=== PATIENT | female | born 1965 | race Caucasian/White ===

== ENCOUNTER 2017-07-26 09:59 | Emergency (ER) | payer OTHER, BC ==
[~2017-07-26] VITALS: Ht 165.1 cm; Wt 72.6 kg
[~2017-07-26 09:59] MED LIST: SERT50TA14
--- NOTE | 2017-07-26 10:18 | NUR ---
PT SEEN AND EVALUATED BY DR CORNELIUS. PRESCRIPTION GIVEN TO PATIENT. DISCHARGE INSTRUCTIONS RENDERED . DISCHARHED IN STABLE CONDITION.
[2017-07-26 10:21] VITALS: BP 140/82
== END 2017-07-26 10:22 | disposition home or self-care (01) ==
LOC: ER 09:59
DX: J06.9 Acute upper respiratory infection, unspecified (principal)
CPT/HCPCS: A4663

== ENCOUNTER 2017-07-28 09:09 | Emergency (ER) | payer OTHER ==
[~2017-07-28] VITALS: Ht 165.1 cm; Wt 72.6 kg
[2017-07-28] MEDS ORDERED: ALBUTEROL SULFATE 2.5 MG/3 ML NEBU ONE ×3 (09:30→11:53)
[2017-07-28] MEDS ORDERED: IPRATROPIUM BROMIDE 0.5 MG/2.5 ML NEBU ONE ×3 (09:30→11:54)
[2017-07-28] MEDS ORDERED: ALBUTEROL SULFATE 2.5 MG/3 ML NEBU NEB ONE ×2 (10:00→11:15)
[2017-07-28] MEDS ORDERED: IPRATROPIUM BROMIDE 0.5 MG/2.5 ML NEBU NEB ONE ×2 (10:00→11:15)
[2017-07-28] MEDS ORDERED: methylPREDNISolone SOD SUCC 125 MG/2 ML VIAL IV ONE (10:00)
[2017-07-28] MEDS ORDERED: IV NORMAL SALINE 1000 ML BAG IV ONE (10:00)
--- NOTE | 2017-07-28 10:22 | NUR ---
iv placed,solumedrol iv administered, cxr/ekg done, presently 2200ml 0.9 bolus infusing, also pt currently receiving resp tx. pt's son at the bedside.
[2017-07-28 10:26] LABS: BASOPHILS % (AUTO) 0.5 % (0.0-2.0); EOSINOPHILS # (AUTO) 0.2 K/uL (0.0-0.7); EOSINOPHILS % (AUTO) 1.8 % (0.0-7.0); HEMATOCRIT 39.5 % (31.2-41.9); HEMOGLOBIN 13.7 g/dL (10.9-14.3); LYMPHOCYTES # (AUTO) 1.3 K/uL (20.0-40.0); LYMPHOCYTES % (AUTO) 14.6 % (20.5-51.5); MEAN CORPUSCULAR HGB CONC 35 g/dL (32.3-35.6); MEAN CORPUSCULAR VOLUME 83.6 fL (75.5-95.3); MONOCYTES # (AUTO) 0.7 K/uL (2.0-10.0); MONOCYTES % (AUTO) 8.2 % (0.0-11.0); NEUTROPHILS # (AUTO) 6.5 K/uL (1.8-8.9); NEUTROPHILS % (AUTO) 74.9 % (38.5-71.5); PLATELET COUNT (AUTO) 241 K/uL (179-408); RED BLOOD CELL COUNT(AUTO) 4.72 MIL/uL (3.63-4.92); WHITE BLOOD COUNT (AUTO) 8.7 K/uL (3.8-11.8)
[2017-07-28 10:28] LABS: CREATININE 0.7 mg/dL (0.6-1.3); POTASSIUM 3.8 mmol/L (3.5-5.1)
[2017-07-28] MEDS ORDERED: methylPREDNISolone SOD SUCC 125 MG/2 ML VIAL ONE (10:33)
[2017-07-28 10:40] LABS: BILIRUBIN,DIRECT 0.1 mg/dL (0.0-0.2); BILIRUBIN,TOTAL 0.5 mg/dL (0.2-1.0); TOTAL PROTEIN, SERUM 7.8 g/dL (6.4-8.2)
--- NOTE | 2017-07-28 13:13 | NUR ---
mse completed, iv d/c'd with cath intact. pt was then d/c'd home, aci/rx x2 and copies of tests and ekg given. pt staed she felt alot better and pt ambulated w./o diff/took all belongings.
[2017-07-28 13:16] VITALS: BP 129/67
== END 2017-07-28 13:17 | disposition home or self-care (01) ==
LOC: ER 09:09
DX: J45.909 Unspecified asthma, uncomplicated (principal)
CPT/HCPCS: 36415; 71010; 80048; 80076; 83605; 83880; 84484; 85025; 85730; 87040 ×2; 93005; 94644; 94645; 96361; 96374; 99285; A4663; J2930; J3590 ×3; J7030; J7050; 70030-TC

== ENCOUNTER 2017-07-30 10:10 | Inpatient (IN) | payer MEDICAID, OTHER ==
[~2017-07-30] VITALS: Ht 165.1 cm; Wt 72.6 kg
[2017-07-30] MEDS ORDERED: PRED50TA PO (10:38)
[2017-07-30] MEDS ORDERED: ALBU6.7H INH (10:38)
[2017-07-30] MEDS ORDERED: IV NORMAL SALINE 1000 ML BAG IV ONE (11:00)
[2017-07-30 11:10] LABS: BASOPHILS # (AUTO) 0.1 K/uL (0.0-8.0); BASOPHILS % (AUTO) 0.5 % (0.0-2.0); EOSINOPHILS # (AUTO) 0.1 K/uL (0.0-0.7); EOSINOPHILS % (AUTO) 0.8 % (0.0-7.0); HEMATOCRIT 41.9 % (37-47); HEMOGLOBIN 13.7 G/DL (12.0-16.0); LYMPHOCYTES # (AUTO) 1.6 K/UL (0.8-4.8); LYMPHOCYTES % (AUTO) 14.8 % (20.5-51.5); MEAN CORPUSCULAR HGB CONC 33 g/dL (32.0-37.0); MEAN CORPUSCULAR VOLUME 82.5 FL (81.0-99.0); MONOCYTES # (AUTO) 0.8 K/UL (0.1-1.30); MONOCYTES % (AUTO) 7.8 % (0.0-11.0); NEUTROPHILS # (AUTO) 8.2 K/UL (1.8-8.9); NEUTROPHILS % (AUTO) 76.1 % (38.5-71.5); PLATELET COUNT (AUTO) 296 K/UL (150-450); RED BLOOD CELL COUNT(AUTO) 5.07 MIL/UL (4.2-5.4); WHITE BLOOD COUNT (AUTO) 10.8 K/UL (4.0-11.2)
--- NOTE | 2017-07-30 11:20 | NUR ---
Pt resting in [facility] with NAD noted at this time. Per Dr. Melendez pt to be admitted, [facility] called.
[2017-07-30 11:23] LABS: CREATININE 0.7 mg/dL (0.6-1.3); POTASSIUM 3.7 mmol/L (3.5-5.1)
[2017-07-30] MEDS ORDERED: CEFTRIAXONE 1 G in IV DEXTROSE 5% 50 ML IV ONE (11:30)
[2017-07-30] MEDS ORDERED: AZITHROMYCIN IV 500 MG in IV DEXTROSE 5% 250 ML IV ONE (11:30)
[2017-07-30 11:35] LABS: BILIRUBIN,DIRECT 0.1 mg/dL (0.0-0.2); BILIRUBIN,TOTAL 0.4 mg/dL (0.2-1.0); TOTAL PROTEIN, SERUM 7.7 g/dL (6.4-8.2)
[2017-07-30] MEDS ORDERED: CEFTRIAXONE 1 G VIAL ONE (11:47)
[2017-07-30] MEDS ORDERED: AZITHROMYCIN 500 MG VIAL IV ONE (11:47)
--- NOTE | 2017-07-30 12:08 | NUR ---
Pt trans to tele, NAD noted.
[2017-07-30 12:40] VITALS: BP 123/68
--- NOTE | 2017-07-30 12:57 | NUR ---
Recieved pateint from Jayna RN. Pt is alert and oriented. Denies any pain or distress. No labored breathing and ambulates well to restroom with no assistance. room safety check is completed. Patient is oriented to room, call light.
[2017-07-30] MEDS ORDERED: IV D5 1/2 NS 1000 ML 1,000 ML IV PRN (12:59)
[2017-07-30] MEDS ORDERED: MAGNESIUM HYDROXIDE 30 ML LIQUID UDC PO PRN (13:00)
[2017-07-30] MEDS ORDERED: ACETAMINOPHEN 325 MG TABLET PO PRN (13:00)
[2017-07-30] MEDS ORDERED: HYDROCODONE/APAP 5-325MG TABLET PO PRN (13:00)
[2017-07-30] MEDS ORDERED: ZOLPIDEM 5 MG TABLET PO PRN (13:00)
[2017-07-30] MEDS ORDERED: ONDANSETRON 4 MG/2 ML VIAL IV PRN (13:00)
[2017-07-30] MEDS ORDERED: Z GUARD REMEDY PASTE 57 GM TUBE TOP PRN (13:00)
[2017-07-30] MEDS: methylPREDNISolone SOD SUCC 40 MG/ML VIAL IV SCH ×2 (14:58→21:55)
[2017-07-30 15:54] VITALS: BP 109/56
[2017-07-30] MEDS: FUROSEMIDE 20 MG TABLET PO SCH (17:18)
[2017-07-30 20:41] VITALS: BP 122/63
--- NOTE | 2017-07-30 23:59 | NUR ---
PT RECEIVED LAYING IN BED WITH FAMILY AT BEDSIDE. OBSERVED COOPERATIVE AND COMPLIANT, DENIES ANY PHYSICAL PAIN AT THIS TIME. ON ROOM AIR, NO ACUTE DISTRESS NOTED. PT ON TELEMETRY, SINUS RHYTHM. BED IN LOW AND LOCKED POSITION. CALL LIGHT WITHIN REACH.
[2017-07-31 00:11] VITALS: BP 114/66
[2017-07-31] MEDS ORDERED: POLYVINYL ALCOHOL OPHT DROPS 15 ML BOTTLE ONE (00:17)
[2017-07-31] MEDS: TOBRAMYCIN/DEXAMETH OPHT DROP 2.5 ML BOTTLE EACHEYE SCH ×6 (04:00→20:34)
[2017-07-31 05:04] VITALS: BP 113/63
[2017-07-31] MEDS: methylPREDNISolone SOD SUCC 40 MG/ML VIAL IV SCH ×2 (06:28→18:26)
[2017-07-31 06:42] LABS: BASOPHILS % (AUTO) 0.2 % (0.0-2.0); HEMATOCRIT 42.4 % (31.2-41.9); HEMOGLOBIN 14.1 g/dL (10.9-14.3); LYMPHOCYTES # (AUTO) 1.2 K/uL (20.0-40.0); LYMPHOCYTES % (AUTO) 9.7 % (20.5-51.5); MEAN CORPUSCULAR HEMOGLOBIN 27.9 uug (24.7-32.8); MEAN CORPUSCULAR HGB CONC 33 g/dL (32.3-35.6); MEAN CORPUSCULAR VOLUME 83.8 fL (75.5-95.3); MONOCYTES # (AUTO) 0.4 K/uL (2.0-10.0); NEUTROPHILS # (AUTO) 10.6 K/uL (1.8-8.9); NEUTROPHILS % (AUTO) 87.1 % (38.5-71.5); PLATELET COUNT (AUTO) 278 K/uL (179-408); RED BLOOD CELL COUNT(AUTO) 5.05 MIL/uL (3.63-4.92); WHITE BLOOD COUNT (AUTO) 12.1 K/uL (3.8-11.8)
[2017-07-31 06:43] LABS: BILIRUBIN,TOTAL 0.3 mg/dL (0.2-1.0); CREATININE 0.8 mg/dL (0.6-1.3); MAGNESIUM 2.7 mg/dL (1.8-2.4); PHOSPHOROUS 4.1 mg/dL (2.5-4.9); POTASSIUM 4.3 mmol/L (3.5-5.1); TOTAL PROTEIN, SERUM 7.9 g/dL (6.4-8.2)
[2017-07-31] MEDS ORDERED: GUAIFENESIN/CODEINE 5 ML LIQUID UDC PO PRN (09:45)
[2017-07-31] MEDS ORDERED: PROMETHAZINE/CODEINE 5 ML UDC PO PRN (09:45)
[2017-07-31 09:47] LABS: BAND % (MANUAL) 6 % (0-10); LYMPHOCYTES % (MANUAL) 6 % (20-40); METAMYELOCYTES % 1 % (0-1); MONOCYTES % (MANUAL) 3 % (2-10); NEUTROPHILS % (MANUAL) 84 % (42-75)
[2017-07-31] MEDS: FUROSEMIDE 20 MG TABLET PO SCH (11:10)
[2017-07-31 11:34] VITALS: BP 109/62
[2017-07-31] MEDS: CEFTRIAXONE 1 G in IV DEXTROSE 5% 50 ML IV SCH (12:03)
[2017-07-31] MEDS: AZITHROMYCIN IV 500 MG in IV DEXTROSE 5% 250 ML IV SCH (13:32)
[2017-07-31 15:58] VITALS: BP 104/53
[2017-07-31] MEDS: POLYVINYL ALCOHOL OPHT DROPS 15 ML BOTTLE EACHEYE PRN ×2 (18:27→18:28)
--- NOTE | 2017-07-31 18:48 | NUR ---
PATIENT OFFERED NO COMPLAINTS BUT PRESENT A INTERMITTENT NON-PRODUCTIVE COUGH. IV CHANGED DUE TO LEAKAGE. SPOUSE WANTS TO SPEAK TO DOCTOR REGARDING LAB TESTS. G00D APPETITE. WALKING IN ROOM AND SITTING UP FOR MEALS. -
--- NOTE | 2017-07-31 19:30 | NUR ---
RECEIVED SHIFT REPORT FROM PREVIOUS SHIFT NURSE. PATIENT IS AOX3, STABLE CONDITION, NO S/S OF DISTRESS. APPEARS COMFORTABLE IN BED. AMBULATORY, BED IN LOCKED/LOW POSITION WITH SIDE RAILS UP X2. SAFETY AND COMFORT WILL BE PROVIDED THROUGHOUT SHIFT.
[2017-07-31 20:16] VITALS: BP 104/58
[2017-07-31 23:49] VITALS: BP 103/60
[2017-08-01] MEDS: TOBRAMYCIN/DEXAMETH OPHT DROP 2.5 ML BOTTLE EACHEYE SCH ×5 (01:05→16:05)
[2017-08-01 04:00] VITALS: BP 109/52
--- NOTE | 2017-08-01 07:04 | NUR ---
PATIENT SLEPT INTERMITTENTLY THROUGH THE NIGHT. PATIENT IN STABLE CONDITION, NO S/S OF DISTRESS AND VSS. PATIENT IS SAFE WITH BED IN LOCKED/LOW POSITION, SIDE RAILS UP X2, AND CALL LIGHT WITHIN REACH OF PATIENT. PATIENT HAS NON-PRODUCTIVE COUGH AND COUGH MEDICATION GIVEN TO PATIENT. WILL INFORM NURSE IN NEXT SHIFT KNOW. SAFETY AND COMFORT WILL BE PROVIDED UNTIL END OF SHIFT.
--- NOTE | 2017-08-01 08:00 | NUR ---
AWAKE ALERT ORTX4 COOPERATE WELL NO SOB OR PAIN RESTING WELL WITH CALL LIGHT IN REACH AND INSTRUCTION TO CALL WHEN NEEDED
[2017-08-01] MEDS: methylPREDNISolone SOD SUCC 40 MG/ML VIAL IV SCH (08:01)
[2017-08-01] MEDS: FUROSEMIDE 20 MG TABLET PO SCH (08:02)
[2017-08-01 11:45] VITALS: BP 103/53
--- NOTE | 2017-08-01 13:00 | NUR ---
DR ZAMORA ORDER OK TO D/C HOME TODAY DR SEGOVIA GIVEN TO PATIENT WITH INSTRUCTION
[2017-08-01] MEDS: CEFTRIAXONE 1 G in IV DEXTROSE 5% 50 ML IV SCH (13:35)
[2017-08-01] MEDS: AZITHROMYCIN IV 500 MG in IV DEXTROSE 5% 250 ML IV SCH (14:28)
--- NOTE | 2017-08-01 15:00 | NUR ---
D/C INSTRUCTION REGARDING F/U WITH OWN PMD ,CONTINUE HOME MEDICINE ORDER EDUCATION PK GIVEN AND PHAMACY INSTRUCTION ALL HOME MED ANS PRECRIPTION TO PATIENT AND FAMILY ,VERBALIZES UNDERSTAND AND SIGNS D/C SHEET
[2017-08-01 15:50] VITALS: BP 107/44
--- NOTE | 2017-08-01 16:15 | NUR ---
D/C HOME WITH HER BELONGING ACCOMPANIES WITH BROTHER CONDITION STABLE NO SOB OR PAIN HL D/C PRIOR D/C HOME
[2017-08-01 16:36] VITALS: BP 102/51
== END 2017-08-01 16:20 | disposition home or self-care (01) | DRG 144 ==
LOC: ER 10:11 → TELE 11:56
PROVIDERS: ADMIT Internal Medicine; ATTEND Internal Medicine
DX: J20.9 Acute bronchitis, unspecified (principal); I50.33 Acute on chronic diastolic (congestive) heart failure; J18.9 Pneumonia, unspecified organism; F32.9 Major depressive disorder, single episode, unspecified; Z79.899 Other long term (current) drug therapy
CPT/HCPCS: 36415; 70030-TC; 71010; 83605; 83735; 84100; 85025; 87040; 93005; 93307; A4663; J0456; J0696; J2920; J3490; J7030; J7060

== ENCOUNTER 2017-09-10 17:05 | Emergency (ER) | payer MEDICAID, OTHER ==
[~2017-09-10] VITALS: Ht 172.7 cm; Wt 79.4 kg
[~2017-09-10 17:05] MED LIST changes: +ALBU6.7H INH; -SERT50TA14
[2017-09-10] MEDS ORDERED: IBUP-23 PO (17:23)
--- NOTE | 2017-09-10 19:21 | NUR ---
Patient discharged to home in stable conditon. Written and verbal after care instructions given. Patient verbalizes understanding of instructions.
== END 2017-09-10 19:21 | disposition home or self-care (01) ==
LOC: ER 17:05
DX: R06.02 Shortness of breath (principal); R05 Cough
CPT/HCPCS: 71010; 87400; 99285; A4663

== ENCOUNTER 2018-10-18 11:33 | Emergency (ER) | payer BC, OTHER ==
[~2018-10-18] VITALS: Ht 167.6 cm; Wt 69.9 kg
[~2018-10-18 11:33] MED LIST changes: -ALBU6.7H INH; +IBUP-23 PO
[2018-10-18] MEDS ORDERED: AMOXICILLIN PO (11:43)
--- NOTE | 2018-10-18 11:50 | NUR ---
Dr Cadena at the bedside for MSE.
--- NOTE | 2018-10-18 11:59 | NUR ---
Patient discharged to home in stable conditon. Written and verbal after care instructions given. Patient verbalizes understanding of instructions.
[2018-10-18 12:00] VITALS: BP 113/76
[2018-10-18] MEDS ORDERED: IBUPROFEN 600 MG TABLET PO ONE (12:00)
== END 2018-10-18 12:02 | disposition home or self-care (01) ==
LOC: ER 11:33
DX: B34.9 Viral infection, unspecified (principal); Z79.1 Long term (current) use of non-steroidal anti-inflammatories (NSAID); Z79.2 Long term (current) use of antibiotics
CPT/HCPCS: A4663

== ENCOUNTER 2020-12-31 20:50 | Emergency (ER) | payer BC, MEDICAID, OTHER ==
[~2020-12-31] VITALS: Ht 170.2 cm; Wt 94.5 kg
[~2020-12-31 20:50] MED LIST changes: +AMOXICILLIN PO
[2020-12-31] MEDS ORDERED: NITROGLYCERIN OINT 1 GM PACKET TP ONE (21:18)
[2020-12-31] MEDS ORDERED: ASPIRIN 81 MG TAB.CHEW ONE (21:18)
[2020-12-31] MEDS: ASPIRIN 81 MG TAB.CHEW PO ONE (21:22)
[2020-12-31] MEDS: NITROGLYCERIN OINT 1 GM PACKET TP ONE (21:22)
[2020-12-31 21:31] LABS: BASOPHILS % (AUTO) 0.7 % (0.0-2.0); EOSINOPHILS # (AUTO) 0.2 K/uL (0.0-0.7); EOSINOPHILS % (AUTO) 4.1 % (0.0-7.0); HEMATOCRIT 35.8 % (31.2-41.9); HEMOGLOBIN 11.9 g/dL (10.9-14.3); LYMPHOCYTES # (AUTO) 1.9 K/uL (20.0-40.0); LYMPHOCYTES % (AUTO) 32.7 % (20.5-51.5); MEAN CORPUSCULAR HGB CONC 33 g/dL (32.3-35.6); MEAN CORPUSCULAR VOLUME 83.9 fL (75.5-95.3); MONOCYTES # (AUTO) 0.8 K/uL (2.0-10.0); MONOCYTES % (AUTO) 13.5 % (0.0-11.0); NEUTROPHILS # (AUTO) 2.9 K/uL (1.8-8.9); PLATELET COUNT (AUTO) 210 K/uL (179-408); RED BLOOD CELL COUNT(AUTO) 4.26 MIL/uL (3.63-4.92); WHITE BLOOD COUNT (AUTO) 5.8 K/uL (3.8-11.8)
[2020-12-31 21:36] LABS: CREATININE 0.6 mg/dL (0.6-1.3)
[2020-12-31 21:48] LABS: BILIRUBIN,DIRECT 0.1 mg/dL (0.0-0.2); BILIRUBIN,TOTAL 0.3 mg/dL (0.2-1.0); TOTAL PROTEIN, SERUM 6.9 g/dL (6.4-8.2)
[2020-12-31] MEDS: ALPRAZOLAM 0.25 MG TABLET PO ONE (22:24)
[2020-12-31] MEDS ORDERED: PROP10TA10 PO (22:24)
[2020-12-31] MEDS ORDERED: ALPR0.25 PO (22:24)
[2020-12-31] MEDS ORDERED: ALPRAZOLAM 0.5 MG TABLET ONE (22:27)
--- NOTE | 2021-01-01 01:07 | NUR ---
Patient discharged to home in stable condition. Written and verbal after care instructions given. Patient verbalizes understanding of instructions. Stressed follow up or return to ER for worsening s/s.
[2021-01-01 01:10] VITALS: BP 123/64
== END 2021-01-01 01:11 | disposition home or self-care (01) ==
LOC: ER 20:52
DX: R07.9 Chest pain, unspecified (principal); R00.2 Palpitations; Z87.01 Personal history of pneumonia (recurrent)
CPT/HCPCS: 36415; 70030-TC; 71045; 85025; 93005; A4663